=== PATIENT | male | born 1995 | race Caucasian/White ===

== ENCOUNTER → 2023-07-23 10:12 | Outpatient (CLI) | payer OTHER, SELFPAY ==
--- NOTE | 2023-07-23 10:16 | DI.RAD.S_ITS ---
PROCEDURE: FL BARIUM SWALLOW W SPEECH INDICATIONS: DYSPHAGIA COMPARISON: None. TECHNIQUE: Examination was conducted in conjunction with speech pathology per standard protocol. In the lateral projection, filming was performed of the patient swallowing. AP projection filming may also be performed with patient swallowing. COMPARISON: FINDINGS: Function: The oral preparatory phase appears normal, with proper containment. The subsequent oral propulsive phase, pharyngeal phase, and esophageal phase of swallowing also appear normal with all proffered substances. No laryngotracheal penetration or aspiration. No pathologic vallecular pooling. Morphology: No cricopharyngeal bar is identified. No cervical esophageal webs. No Zenker's diverticulum. No strictures. IMPRESSION: No penetration or aspiration. Please see separately dictated speech pathologist report for full details. Dictated by: Keely Joy M.D. on 07/25/2023 at 10:25 Approved by: Keely Joy M.D. on 07/25/2023 at 10:30
--- NOTE | 2023-07-23 13:40 | ST.SWALLOW ---
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 According to the pt, starting in March he experienced a hyperactive gag reflex with nausea, globus sensation and gastrointestinal symptoms. Pt reported losing 35 pounds during that time. Pt reported similar symptoms when he was stationed in [employer]) a year ago when he was diagnosed with a parasitic infection with ulcers at that time. Approximately two to three weeks ago, his symptoms apparently improved and he has been able to eat anything he wants. He reported no globus, hyperactive gag, or intestinal symptoms. Pt did note that his recent testing had noted a lump on his liver, which is being assessed further. Subjective Observations Pt was seated in the fluoroscopy chair with directions and procedures described for him. Pt indicated he understood and agreed to proceed. Patient Positioning Position View Lat-A/P Imaging Lateral View Textures Administered Trials Presented Thin Liquid via Spoon (IDDSI 0 ),Thin Liquid via Cup (IDDSI 0 ),Extremely Thick Liquid via Spoon (IDDSI 4),Regular (IDDSI 7) Barium Tablet Yes The IDDSI Framework Protocol: IDDSI.1 Oral Impairment Source: The Modified Barium Swallow Impairment Profile (MBSImP??) Lip Closure No labial escape Tongue Control During Bolus Hold Cohesive bolus between tongue to palatal seal Bolus Preparation/Mastication Timely & efficient chewing & mashing Bolus Transport/Lingual Motion Brisk tongue motion Oral Residue Complete oral clearance Initiation of Pharyngeal Swallow Bolus head at posterior angle of ramus (first hyoid excursion) Additional Oral Impairment Observations OME and DKS were observed to be WNL. Natural dentition in good hygiene. Oral phase of swallow was observed to be WNL Pharyngeal Impairment Source: The Modified Barium Swallow Impairment Profile (MBSImP??) Soft Palate Elevation No bolus between soft palate & pharyngeal wall Laryngeal Elevation Comp.sup.move.thyroid cart.w/ comp.approx.arytenoids to epiglot petiole Anterior Hyoid Excursion Complete anterior movement Epiglottic Movement Complete inversion Laryngeal Vestibular Closure Complete; no air/contrast in laryngeal vestibule Pharyngeal Stripping Wave Present - complete Pharyngoesophageal Segment Opening Complete distention & complete duration; no obstruction of flow Tongue Base Retraction No contrast between tongue base & posterior pharyngeal wall Pharyngeal Residue Complete pharyngeal clearance Additional Pharyngeal Impairment Pharyngeal phase of swallow Observations was observed to be WNL. No gag reflex observed, no pooling of of secretions noted and no regurgitation observed. Complete clearance of the bolus to the esophagus A/P View The IDDSI Framework Protocol: IDDSI.1 A/P View Observations Pharyngeal Contraction Complete Esophageal Clearance Upright Position Complete clearance; esophageal coating Vocal Fold Function Good Esophageal Function WFL Additional A-P Observations Barium tablet was observed to clear the esophagus in a timely manner. Esophagus observed to be WNL. Clinical Impressions Dysphagia Type WNL Findings Pt presented with normal oral, pharyngeal and esophageal phases of swallowing Patient Appropriate for Therapy No Recommendations Diet Comments No diet change recommended
== END ==
PROVIDERS: Referring Provider Otolaryngology; Visit Provider Otolaryngology
DX: R13.10 Dysphagia, unspecified (principal)
CPT/HCPCS: 74230; 92611